=== PATIENT | female | born 1980 | race Hispanic/Latino ===

== ENCOUNTER 2017-02-01 06:11 | Emergency (ER) | payer BC ==
[2017-02-01 06:31] VITALS: BP 130/76; PULSE 79; RESP 16; TEMP 98.4; O2SAT 100
--- NOTE | 2017-02-01 06:41 | ED PDOC ---
Lower Extremity Pain/Injury Chief Complaint (Provider): foot pain History Per: Patient History/Exam Limitations: no limitations Onset/Duration Of Symptoms: Hrs Current Symptoms Are (Timing): Still Present Severity: Moderate Pain Scale Rating Of: 5 Additional Complaint(s): 36 yo F w/o PMHx presents to ER for R foot pain that began several hours ago. She was walking with her friend in the street, when it began inexplicably hurting without fall, trip, accident, or rolling of her ankle. She states minimal edema when it occurred, but that it reduced since she's been in the ER and has kept her foot elevated. She states only having one glass of wine and denies any other alcoholic beverages or illicit substances. She denies LOC, headstrike, dizziness, lightheadedness, fevers/chills, nausea, or vomiting. Patient does state that she broke her Right elbow one year ago and her Left wrist, which is currently wrapped, one month ago. Otherwise, she denies chest pain, palpitations, SOB, dyspnea, cough, abdominal pain, hematuria, dysuria, or myalgias. - Ankle/Foot Description Of Injury: Other (no inciting event, trauma, fall, or trip) Alleviating Factor(s): Elevation <Chinmay Gill T - Last Filed: 02/01/17 07:14> <Krissy Levine - Last Filed: 02/01/17 08:27> Chief Complaint (Nursing): Lower Extremity Problem/Injury Supervising Attending Note - Supervising Attending Note The Documented history was done by the: Physician Assayer The documented physical exam was done by the: Physician Assayer The documented procedures were done by the: Physician Assayer - Attestation: I have personally seen and examined this patient.: Yes I have fully participated in the care of the patient.: Yes I have reviewed all pertinent clinical information, including history, physical exam and plan: Yes <Krissy Levine - Last Filed: 02/01/17 08:27> Past Medical History Reviewed: Historical Data, Nursing Documentation, Vital Signs Vital Signs: Last Vital Signs Temp 98.4 F 02/01/17 06:20 Pulse 79 02/01/17 06:20 Resp 16 02/01/17 06:20 BP 130/76 02/01/17 06:20 Pulse Ox 100 02/01/17 06:20 - Medical History PMH: Denies: Chronic Kidney Disease - Surgical History Surgical History: Appendectomy <Chinmay Gill T - Last Filed: 02/01/17 07:14> Vital Signs: Last Vital Signs Temp 98.4 F 02/01/17 06:20 Pulse 79 02/01/17 06:20 Resp 16 02/01/17 06:20 BP 130/76 02/01/17 06:20 Pulse Ox 100 02/01/17 07:15 <Krissy Levine F - Last Filed: 02/01/17 08:27> - Home Medications Home Medications: Ambulatory Orders Medication Instructions Recorded Naproxen [Naprosyn] 500 mg PO BID PRN #15 tablet 02/01/17 - Allergies Allergies/Adverse Reactions: Allergies Allergy/AdvReac Type Severity Reaction Status Date / Time No Known Allergies Allergy Verified 02/01/17 06:30 Wells Criteria for PE - Wells Criteria for Pulmonary Embolism Clinical Signs and Symptoms of DVT: No P.E is #1 Diagnosis, or Equally Likely: No Heart Rate >100: No Immobilization at least 3 days;Surgery previous 4 weeks: No Previous, objectively diagnosed PE or DVT: No Hemoptysis: No Malignancy w/treatment within 6 months, or palliative: No Total Score: 0 <Chinmay Gill T - Last Filed: 02/01/17 07:14> Review of Systems ROS Statement: Except As Marked, All Systems Reviewed And Found Negative (see HPI) <Chinmay Gill T - Last Filed: 02/01/17 07:14> Physical Exam - Reviewed Nursing Documentation Reviewed: Yes Vital Signs Reviewed: Yes - Physical Exam Appears: Positive for: Well, Non-toxic, No Acute Distress Head Exam: Positive for: ATRAUMATIC, NORMOCEPHALIC Skin: Positive for: Normal Color, Warm, Dry Eye Exam: Positive for: Normal appearance, EOMI, PERRL Neck: Positive for: Normal, Painless ROM Cardiovascular/Chest: Positive for: Regular Rate, Rhythm. Negative for: Edema Respiratory: Positive for: Normal Breath Sounds. Negative for: Rhonchi, Wheezing Gastrointestinal/Abdominal: Positive for: Normal Exam, Soft. Negative for: Tenderness Back: Positive for: Normal Inspection Extremity: Positive for: Normal ROM. Negative for: Pedal Edema, Calf Tenderness Neurologic/Psych: Positive for: Alert, marking machine tender II-XII, Oriented <Chinmay Gill - Last Filed: 02/01/17 07:14> - ECG O2 Sat by Pulse Oximetry: 100 - Progress ED Course And Treament: 36 yo F w/o PMHx presents to ER for R foot pain that began several hours ago -Upreg -XR R foot -XR R ankle -Motrin 600mg PO x1 <Chinmay Gill - Last Filed: 02/01/17 07:14> - Other Rad XR R foot X-Ray: Interpreted by Me (Negative.) XR R ankle X-Ray: Interpreted by Me (Negative.) <Krissy Levine F - Last Filed: 02/01/17 08:27> Disposition <Chinmay Gill T - Last Filed: 02/01/17 07:14> - Patient ED Disposition Is Patient to be Admitted: No - Disposition Disposition: Routine/Home Disposition Time: 08:20 <Krissy Levine - Last Filed: 02/01/17 08:27> - Clinical Impression Clinical Impression: Foot pain - Disposition Referrals: Podiatry Clinic [Outside] Condition: STABLE Prescriptions: Naproxen [Naprosyn] 500 mg PO BID PRN #15 tablet PRN Reason: Pain, Moderate (4-7) Instructions: Musculoskeletal Pain (ED)
--- NOTE | 2017-02-01 09:50 | RAD ---
PROCEDURE: Right Foot Radiographs. HISTORY: r/o fracture COMPARISON: None. FINDINGS: BONES: Normal. No fracture. JOINTS: Normal. SOFT TISSUES: Normal. OTHER FINDINGS: None. IMPRESSION: No evidence of acute fracture or dislocation.
--- NOTE | 2017-02-01 09:53 | RAD ---
PROCEDURE: Right Ankle Radiographs. HISTORY: r/o fracture COMPARISON: None FINDINGS: BONES: Normal. No fracture. JOINTS: Normal. No osteoarthritis. Ankle mortise maintained. Talar dome intact SOFT TISSUES: Normal. OTHER FINDINGS: None. IMPRESSION: No evidence of acute fracture or dislocation.
== END 2017-02-01 08:42 | disposition home or self-care (01) ==
LOC: H.ER 06:11
DX: M79.671 Pain in right foot (principal)